=== PATIENT | female | born 1990 | race African-American/Black ===

== ENCOUNTER 2016-12-25 22:21 | Emergency (ER) | payer MEDICAID ==
[~2016-12-25] VITALS: Ht 160 cm; Wt 98.0 kg
[~2016-12-25 22:21] MED LIST: DIPH25CA83
[2016-12-26] MEDS ORDERED: KETOROLAC 60MG/2ML VIAL IM ONE (04:15)
[2016-12-26 05:36] VITALS: BP 122/81
== END 2016-12-26 07:20 | disposition home or self-care (01) ==
LOC: ER 22:22
DX: R07.89 Other chest pain (principal); I10 Essential (primary) hypertension; Z98.890 Other specified postprocedural states
CPT/HCPCS: 71010; 81025; 93005; 96372; 99284; J1885

== ENCOUNTER 2019-08-24 11:19 | Emergency (ER) | payer MEDICAID, OTHER ==
[~2019-08-24] VITALS: Ht 162.6 cm; Wt 108.0 kg
[2019-08-24] MEDS ORDERED: KETOROLAC 60MG/2ML VIAL IM ONE (13:00)
[2019-08-24 13:47] VITALS: BP 147/88
== END 2019-08-24 13:48 | disposition home or self-care (01) ==
LOC: ER 11:41
DX: S23.3XXA Sprain of ligaments of thoracic spine, initial encounter (principal); X58.XXXA Exposure to other specified factors, initial encounter; Y93.89 Activity, other specified; Y92.89 Other specified places as the place of occurrence of the external cause; Y99.8 Other external cause status
CPT/HCPCS: 81025; 96372; 99283; J1885

== ENCOUNTER 2020-04-15 23:23 | Emergency (ER) | payer OTHER ==
[~2020-04-15] VITALS: Ht 160 cm; Wt 100.0 kg
[2020-04-16 02:10] LABS: BASOPHILS % 0.2 % (0.0-2.0); EOSINOPHILS % 0.7 % (0.0-5.0); HEMATOCRIT. 33.1 % (36.0-48.0); HEMOGLOBIN. 11.3 g/dL (12.0-16.0); LYMPHOCYTES % 12.3 % (20.0-50.0); MEAN PLATELET VOLUME 7.7 fl (7.4-10.4); MONOCYTES % 5.7 % (2.0-8.0); NEUTROPHILS % 81.1 % (40.0-76.0); PLATELET 358 x1000/uL (130-400); RED BLOOD CELL COUNT 4.03 mill/uL (4.2-5.4); RED CELL DISTRIBUTION WIDTH 13.2 % (11.6-14.6)
[2020-04-16 02:15] LABS: CHLORIDE 103 mEq/L (98-107)
[2020-04-16 02:24] LABS: T4 FREE 1.33 ng/dL (0.76-1.46)
[2020-04-16 02:44] LABS: CLARITY URINE CLOUDY (CLEAR); COLOR URINE DARK YELLOW (YELLOW); KETONES URINE TRACE (NEGATIVE); LEUKOCYTE ESTERASE URINE 1+ (NEGATIVE); NITRITE URINE NEGATIVE (NEGATIVE); OCCULT BLOOD URINE 3+ (NEGATIVE); PH URINE 5.5 (4.5-8.0); PROTEIN URINE TRACE (NEGATIVE); SPECIFIC GRAVITY URINE 1.033 (1.005-1.030)
[2020-04-16 02:50] LABS: HCG SCREEN NEGATIVE
[2020-04-16 05:18] VITALS: BP 139/92
== END 2020-04-16 06:11 | disposition home or self-care (01) ==
LOC: ER 23:23
DX: E03.9 Hypothyroidism, unspecified (principal); R53.1 Weakness; M25.50 Pain in unspecified joint; Z98.890 Other specified postprocedural states; Z91.040 Latex allergy status
CPT/HCPCS: 36415; 71045; 80053; 81003; 84439; 84443; 84484; 84703; 85025; 93005; 99285

== ENCOUNTER 2025-04-19 12:06 | Inpatient (IN) | payer MEDICAID, OTHER ==
[~2025-04-19] VITALS: Ht 160 cm; Wt 90.7 kg
[2025-04-19 12:10] VITALS: O2SAT 97
[2025-04-19 13:38] LABS: BASOPHILS % 0.5 % (0.0-2.0); EOSINOPHILS % 1.6 % (0.0-5.0); HEMATOCRIT. 32.6 % (36.0-48.0); HEMOGLOBIN. 11.0 g/dL (12.0-16.0); LYMPHOCYTES % 36.4 % (20.0-50.0); MEAN PLATELET VOLUME 7.3 fl (7.4-10.4); MONOCYTES % 5.5 % (2.0-8.0); NEUTROPHILS % 56.0 % (40.0-76.0); PLATELET 370 x1000/uL (130-400); RED BLOOD CELL COUNT 3.97 mill/uL (4.2-5.4); RED CELL DISTRIBUTION WIDTH 14.5 % (11.6-14.6)
[2025-04-19 14:02] LABS: CREATININE 0.5 mg/dL (0.6-1.0); UREA NITROGEN BLOOD 7 mg/dL (9-23)
[2025-04-19 14:03] LABS: ASPARTATE AMINOTRANSFERASE 12 IU/L (<34)
[2025-04-19 14:04] LABS: BILIRUBIN DIRECT 0.2 mg/dL (<=3.0); BILIRUBIN TOTAL 0.5 mg/dL (0.1-1.0); PROTEIN TOTAL 7.8 g/dL (6.0-8.3)
[2025-04-19] MEDS ORDERED: ACETAMINOPHEN 325MG TABLET PO PRN (21:15)
[2025-04-19] MEDS ORDERED: DOCUSATE SODIUM 100MG CAPSULE PO PRN (21:15)
[2025-04-19] MEDS ORDERED: ONDANSETRON HCL 4MG/2ML INJ IV PRN (21:15)
[2025-04-19] MEDS ORDERED: LORAZEPAM 0.5MG TABLET PO PRN (21:15)
[2025-04-19] MEDS ORDERED: IPRATROPIUM/ALBUTEROL 0.5-3(2.5)MG/3ML NEB HHN PRN (21:15)
[2025-04-19] MEDS ORDERED: GUAIFENESIN 200MG/10ML SUGAR FREE UDC PO PRN (21:15)
[2025-04-19] MEDS ORDERED: CLONIDINE 0.1MG TABLET PO PRN (21:15)
[2025-04-19] MEDS ORDERED: KETOROLAC 15MG/ML VIAL IV PRN (21:30)
[2025-04-19 22:00] VITALS: BP 117/63; PULSE 67; RESP 15; TEMP 36.6; O2SAT 99
[2025-04-19 22:23] VITALS: BP 117/63; PULSE 67; RESP 15; TEMP 36.5848
[2025-04-19] MEDS: ACETAMINOPHEN 325MG TABLET PO PRN (23:01)
[2025-04-19 23:02] LABS: HCG SCREEN NEGATIVE
[2025-04-19 23:48] LABS: T4 FREE 1.15 ng/dL (0.89-1.76)
[2025-04-19 23:49] LABS: VITAMIN B12 SERUM 418 pg/mL (211-911)
[2025-04-19 23:50] LABS: FOLIC ACID (FOLATE) SERUM 6.81 ng/mL (>5.38)
[2025-04-20 04:00] VITALS: BP 123/66; PULSE 65; RESP 16; TEMP 36.7; O2SAT 99
[2025-04-20] MEDS: LEVOTHYROXINE SODIUM 25MCG TABLET PO SCH (06:10)
[2025-04-20 06:47] LABS: CLARITY URINE CLEAR (CLEAR); COLOR URINE ORANGE (YELLOW); GLUCOSE URINE NEGATIVE (NEGATIVE); KETONES URINE 2+ (NEGATIVE); LEUKOCYTE ESTERASE URINE TRACE (NEGATIVE); NITRITE URINE NEGATIVE (NEGATIVE); OCCULT BLOOD URINE 3+ (NEGATIVE); PH URINE 6.5 (4.5-8.0); PROTEIN URINE 1+ (NEGATIVE); SPECIFIC GRAVITY URINE 1.021 (1.005-1.030); UROBILINOGEN URINE 1.0 E.U./dL (0.2-1.0)
[2025-04-20 06:59] LABS: CREATININE 0.5 mg/dL (0.6-1.0)
[2025-04-20 07:00] LABS: UREA NITROGEN BLOOD 6 mg/dL (9-23)
[2025-04-20 07:04] LABS: BASOPHILS % 0.4 % (0.0-2.0); EOSINOPHILS % 1.6 % (0.0-5.0); HEMATOCRIT. 31.9 % (36.0-48.0); HEMOGLOBIN. 10.9 g/dL (12.0-16.0); LYMPHOCYTES % 33.4 % (20.0-50.0); MEAN PLATELET VOLUME 7.8 fl (7.4-10.4); MONOCYTES % 7.1 % (2.0-8.0); NEUTROPHILS % 57.5 % (40.0-76.0); PLATELET 346 x1000/uL (130-400); RED BLOOD CELL COUNT 3.88 mill/uL (4.2-5.4); RED CELL DISTRIBUTION WIDTH 14.3 % (11.6-14.6)
[2025-04-20 07:12] LABS: *AMPHETAMINES SCREEN URINE NEGATIVE (NEGATIVE); *BARBITURATES SCREEN URINE NEGATIVE (NEGATIVE); *BENZODIAZEPINES SCREEN URINE NEGATIVE (NEGATIVE); *COCAINE SCREEN URINE NEGATIVE (NEGATIVE); CANNABINOID URINE SCREEN NEGATIVE (NEGATIVE); ECSTASY MDMA SCREEN URINE NEGATIVE (NEGATIVE); METHADONE URINE SCREEN NEGATIVE (NEGATIVE); OPIATES URINE SCREEN NEGATIVE (NEGATIVE); PHENCYCLIDINE URINE SCREEN NEGATIVE (NEGATIVE)
[2025-04-20 07:28] LABS: HEPATITIS C AB NON REACTIVE (Neg) (Negative)
[2025-04-20 08:00] VITALS: BP 112/54; PULSE 73; RESP 19; TEMP 36.7; O2SAT 98
[2025-04-20 08:17] LABS: BACTERIA URINE 1+; RBC URINE 15-25 /hpf (0-2); SQUAMOUS EPITHELIAL CELL URINE 2+ /lpf (RARE/1+); YEAST URINE NONE SEEN
[2025-04-20 12:00] VITALS: BP 101/58; PULSE 61; RESP 20; TEMP 36.4; O2SAT 100
[2025-04-20] MEDS ORDERED: KETOROLAC 15MG/ML VIAL IV SCH (15:42)
[2025-04-20] MEDS ORDERED: PANTOPRAZOLE SODIUM 40 MG/VIAL IV SCH (15:45)
[2025-04-20 16:00] VITALS: BP 121/77; PULSE 74; RESP 20; TEMP 37; O2SAT 100
[2025-04-20] MEDS ORDERED: ONDANSETRON HCL 4MG TABLET PO PRN (17:30)
[2025-04-20] MEDS: PANTOPRAZOLE 40MG DR TABLET PO SCH (17:41)
[2025-04-20 20:00] VITALS: BP 112/63; PULSE 70; RESP 18; TEMP 36.5; O2SAT 99
[2025-04-20] MEDS: DICLOFENAC SODIUM 50 MG PO SCH (20:12)
[2025-04-21] VITALS: BP 105/56; PULSE 62; RESP 18; TEMP 36.6; O2SAT 99
[2025-04-21 04:00] VITALS: BP 111/63; PULSE 90; RESP 18; TEMP 36.4; O2SAT 99
[2025-04-21 07:05] LABS: T4 FREE 1.17 ng/dL (0.89-1.76)
[2025-04-21 08:00] VITALS: BP 114/74; RESP 18; TEMP 36.6; O2SAT 100
[2025-04-21] MEDS: METHYLPREDNISOLONE SOD SUCC 40MG/ML (ACT-O-VIAL) IV SCH (08:15)
[2025-04-21] MEDS: DICLOFENAC SODIUM 50 MG PO SCH (09:01)
[2025-04-21 12:00] VITALS: BP 118/71; RESP 18; TEMP 36.4; O2SAT 100
[2025-04-21] MEDS ORDERED: PREDNISOLONE 15 MG/5 ML ORAL SYRINGE PO SCH (13:00)
[2025-04-21 16:00] VITALS: BP 124/80; RESP 18; TEMP 36.7; O2SAT 100
[2025-04-21 20:00] VITALS: BP 128/82; PULSE 88; RESP 16; TEMP 36.7; O2SAT 100
[2025-04-21] MEDS: PREDNISONE 20MG TABLET PO SCH (21:20)
[2025-04-21] MEDS: FAMOTIDINE 20MG TABLET PO SCH (21:20)
[2025-04-22] VITALS: BP 130/78; PULSE 86; RESP 18; TEMP 36.7; O2SAT 100
[2025-04-22 04:00] VITALS: BP 132/86; PULSE 86; RESP 18; TEMP 36.7; O2SAT 100
[2025-04-22 08:00] VITALS: BP 116/65; PULSE 60; RESP 16; TEMP 36.7; O2SAT 100
[2025-04-22] MEDS ORDERED: DICL50TA9 PO (08:24)
[2025-04-22] MEDS ORDERED: P20 PO (08:24)
[2025-04-22] MEDS ORDERED: TOPUD PO (08:24)
[2025-04-22] MEDS ORDERED: LEVO25TA7 PO (08:24)
[2025-04-22] MEDS ORDERED: FAMO20TA8 PO (08:24)
[2025-04-22] MEDS ORDERED: FERR325T6 MT (08:28)
[2025-04-22 12:00] VITALS: BP 114/73; PULSE 68; RESP 17; TEMP 36.6; O2SAT 98
[2025-04-22 16:00] VITALS: BP 129/79; PULSE 84; RESP 18; TEMP 36.6; O2SAT 98
[2025-04-22 20:00] VITALS: BP 124/75; PULSE 83; RESP 18; TEMP 36.4; O2SAT 99
[2025-04-23] VITALS: BP 114/70; PULSE 61; RESP 18; TEMP 36.4; O2SAT 99
[2025-04-23 04:00] VITALS: BP 94/51; PULSE 58; RESP 17; TEMP 36.3; O2SAT 96
[2025-04-23 08:00] VITALS: BP 110/62; PULSE 60; RESP 18; TEMP 36.8; O2SAT 98
[2025-04-23 09:07] LABS: COMPLEMENT C4 31 mg/dL (12-38)
[2025-04-23 12:00] VITALS: BP 112/66; PULSE 66; RESP 18; TEMP 36.9; O2SAT 99
[2025-04-23 16:00] VITALS: BP 114/66; PULSE 64; RESP 18; TEMP 36.8; O2SAT 98
[2025-04-23 20:00] VITALS: BP 129/91; PULSE 75; RESP 18; TEMP 37.1; O2SAT 100
[2025-04-23] MEDS: METHYLPREDNISOLONE SOD SUCC 40MG/ML (ACT-O-VIAL) IV SCH (21:00)
[2025-04-24] VITALS: BP 104/57; PULSE 73; RESP 19; TEMP 35.8; O2SAT 99
[2025-04-24 04:00] VITALS: BP 104/59; PULSE 57; RESP 18; TEMP 36.2; O2SAT 99
[2025-04-24 08:00] VITALS: BP 118/74; PULSE 68; RESP 16; TEMP 36.4; O2SAT 98
[2025-04-24 12:00] VITALS: BP 110/74; PULSE 71; RESP 18; TEMP 36.8; O2SAT 100
[2025-04-24 16:00] VITALS: BP 109/65; PULSE 70; RESP 16; TEMP 36.4; O2SAT 96
[2025-04-24 20:00] VITALS: BP 108/59; PULSE 63; RESP 18; TEMP 36.4; O2SAT 99
[2025-04-25] VITALS (7 sets, daily range): BP systolic 106–124; BP diastolic 60–77; PULSE 51–65; RESP 17–18; TEMP 36.3–36.6; O2SAT 97–99
[2025-04-25 11:43] LABS: CLARITY URINE CLEAR (CLEAR); COLOR URINE YELLOW (YELLOW); GLUCOSE URINE NEGATIVE (NEGATIVE); KETONES URINE NEGATIVE (NEGATIVE); LEUKOCYTE ESTERASE URINE TRACE (NEGATIVE); NITRITE URINE NEGATIVE (NEGATIVE); OCCULT BLOOD URINE TRACE (NEGATIVE); PH URINE 6.5 (4.5-8.0); PROTEIN URINE NEGATIVE (NEGATIVE); SPECIFIC GRAVITY URINE 1.026 (1.005-1.030); UROBILINOGEN URINE 1.0 E.U./dL (0.2-1.0)
[2025-04-25 12:02] LABS: BACTERIA URINE 2+; SQUAMOUS EPITHELIAL CELL URINE 3+ /lpf (RARE/1+)
[2025-04-25 12:04] LABS: WBC URINE 0-2 /hpf (0-2)
[2025-04-25 12:05] LABS: RBC URINE NONE SEEN /hpf (0-2)
[2025-04-25 13:12] LABS: ATYPICAL P-ANCA <1:20 titer (Neg:<1:20); CYTOPLASMIC C-ANCA <1:20 titer (Neg:<1:20); PERINUCLEAR P-ANCA <1:20 titer (Neg:<1:20)
[2025-04-25 15:07] LABS: ANTI-MYELOPEROXIDASE AB < 0.2 units (0.0-0.9); ANTI-PROTEINASE 3 ABS < 0.2 units (0.0-0.9)
== END 2025-04-25 20:40 | disposition home health service (06) | DRG 346 ==
LOC: ER 12:06 → 8EST 19:40 → EDBEDREQ 19:44 → EDBEDREQTM 19:44 → EDBEDREQSVC 19:44 → ENRESERV 20:56
PROVIDERS: ADMIT Hospitalist; ATTEND Hospitalist
DX: M06.861 Other specified rheumatoid arthritis, right knee (principal); D64.9 Anemia, unspecified; E03.9 Hypothyroidism, unspecified; M06.862 Other specified rheumatoid arthritis, left knee; M17.0 Bilateral primary osteoarthritis of knee; M19.021 Primary osteoarthritis, right elbow; F41.9 Anxiety disorder, unspecified; Z79.899 Other long term (current) drug therapy; Z82.61 Family history of arthritis
CPT/HCPCS: 36415; 72110; 73070; 73560; 80048; 80076; 80305; 81003; 82550; 82607; 82746; 83520; 83540; 83550; 84439; 84443; 84550; 84703; 85025; 85651; 86160; 86200; 86256; 86431; 86705; 87340; 93005; 93970; 97110; 97162; 97165; 97530; 97535; 97542; 99285; J2919; J7512